=== PATIENT | male | born 1990 | race African-American/Black ===

== ENCOUNTER 2016-07-11 12:45 | Emergency (ER) | payer MEDICAID ==
[~2016-07-11] VITALS: Ht 185.4 cm; Wt 172.4 kg
[~2016-07-11 12:45] MED LIST: ALBUTEROL SULF8.5 GM INH; AZITHROMYCIN250 MG ORAL; BACITRACIN1 APPLIC TOPIC; BACTRIM DS TAB1 EAC1 ORAL; CYCLOBENZAPRINE10 MG ORAL; FIORICET1 EA ORAL; IBUPROFEN600 MG ORAL; IBUPROFEN800 M1 PO; IBUPROFEN800 MG ORAL; KEFLEX500 MG ORAL; LEVAQUIN750 MG ORAL; MEDROL DOSEPAK4 MG ORAL; NKM; NORCO 5-325 TA1 EACH ORAL; PERCOCET 5-3251 EACH ORAL; PREDNISONE20 MG ORAL; PROMETHAZINE-C118 M1 ORAL; PROMETHAZINE-D118 ML ORAL; TAMIFLU75 MG ORAL; TRAMADOL HCL50 MG ORAL
[2016-07-11] MEDS ORDERED: ALBUTEROL SULF8.5 GM INH (13:07)
--- NOTE | 2016-07-11 13:14 | Emergency Room Report ---
History of Present Illness General Chief Complaint: General Complaint Source: Patient Present Illness HPI 26-year-old male presents to emergency Department complaining of right knee pain x2 days 01/17 in severity exacerbated upon walking long distances. Patient denies history of fall, trauma or previous injury. Patient states he notices the pain when he is at work after he has been walking for some time or after flexing the knee repeatedly. Patient denies clicking or instability. Patient denies erythema, swelling or increased pressure palpation. Patient also reports 2 lesions on the anterior left mascorro with surrounding erythema one with overlying pustule the second recently the pustule burst. Denies injury he states he may have had insect bite denies itching. Reports tenderness to the skin about the lesions. Lastly patient also reports intermittent cough with mild nasal congestion denies sore throat, body aches, nausea, vomiting, fevers or chills. She denies any compromise denies history of asthma/COPD. Denies numbness tingling or loss of sensation or gross motor movements of the extremities, incontinence of bowel or bladder. Denies CP, Palpitations, LOC, AMS , dizziness, Changes in Vision, Sensation, paresthesias, or a sudden severe headache. Allergies: Coded Allergies: No Known Allergies (Unverified , 08/25/15) Patient History Past Medical History: see triage record Past Surgical History: none Pertinent Family History: none Immunizations: UTD Reviewed Nursing Documentation: PMH: Agreed, PSxH: Agreed Nursing Documentation-PM Past Medical History: No History, Except For Hx Hypertension: Yes Hx Asthma: Yes Review of Systems All Other Systems: negative except mentioned in HPI Physical Exam Vital Signs Date Time Temp Pulse Resp B/P Pulse Ox O2 Delivery O2 Flow Rate FiO2 07/11/16 12:59 98.6 73 18 148/107 97 Room Air Sp02 EP Interpretation: reviewed, normal General Appearance: no apparent distress, alert, GCS 15, non-toxic Head: normocephalic, atraumatic Eyes: bilateral eye PERRL, bilateral eye normal inspection ENT: hearing grossly normal, normal pharynx, no angioedema, normal voice, TMs + canals normal, uvula midline, moist mucus membranes Neck: full range of motion, supple/symm/no masses Respiratory: chest non-tender, lungs clear, normal breath sounds, no rhonchi, no respiratory distress, no retraction, no accessory muscle use, no wheezing, speaking full sentences Cardiovascular #1: regular rate, rhythm, no edema Cardiovascular #2: 2+ radial (R), 2+ radial (L), 2+ dorsalis pedis (R), 2+ dorsalis pedis (L) Gastrointestinal: normal bowel sounds, non tender, soft, no guarding, no rebound Rectal: deferred Genitourinary: normal inspection, no CVA tenderness Musculoskeletal: back normal, gait/station normal, normal range of motion, no calf tenderness, other - no TTP upon palpation to the right knee, no increased laxity upon varus or valgus stressing, negative anterior and posterior drawer signs Pt. did have positive pain with "grind test" , tender Neurologic: alert, oriented x3, responsive, motor strength/tone normal, sensory intact, speech normal Psychiatric: judgement/insight normal, memory normal, mood/affect normal, no suicidal/homicidal ideation Skin: normal color, no rash, warm/dry, well hydrated, other - two open lesions on the anterior left mascorro both 0.5cm in diameter, one with pustule noted, both have surrounding erythema and mild increased temperature to palpation, no evidence of excoriation or infestation. Lymphatic: no adenopathy Procedures Splinting Splinting : Consent: Verbal Location: right knee Pre-Made Type: RIK wrap Pre-Proc Neuro Vasc Exam: normal Post-Proc Neuro Vasc Exam: normal Patient Tolerated: Well Complications: None Medical Decision Making PA Attestation Dr. Banks is my supervising Physician whom patient management has been discussed with. Diagnostic Impression: Primary Impression: Right knee sprain Qualified Codes: S83.91XA - Sprain of unspecified site of right knee, initial encounter Additional Impressions: Cellulitis Qualified Codes: L03.90 - Cellulitis, unspecified URI (upper respiratory infection) Qualified Codes: J06.9 - Acute upper respiratory infection, unspecified; B97.89 - Other viral agents as the cause of diseases classified elsewhere ER Course Pt. presents to the ED c/o: Right knee pain after walking long distance, lesions on the anterior portion, and denies feversx 2 days Ddx considered but are not limited to Fracture, dislocation, contusion, Sprain/ Strain/Spasm, Cellulitis, URI, insect bite, dermatitis. Vital signs: are WNL, pt. is afebrile H&PE are most consistent with cellulitis of the left mascorro, and right Knee sprain, URI- no meningeal signs, oropharynx is not involved, no evidence of bacterial infection of the upper respiratory system at this time. ORDERS: - X-ray Right knee - negative for fx, Dislocation, or significant soft tissue injury, evidence of mild degenerative changes- per preliminary read in ED by Dr. Watt ED INTERVENTIONS: - Rik wrap applied by configuration technician. Pt. remains neurovascularly intact. -Bacitracin and Band-Aid is applied to open lesion on the left mascorro. - Discussed the patient that if his symptoms continue despite conservative management that his knee may require MRI which is performed as an outpatient ordered by his PCP. DISCHARGE: At this time pt. is stable for d/c to home. Will provide printed patient care instructions, and any necessary prescriptions. Care plan and follow up instructions have been discussed with the patient prior to discharge. Last Vital Signs Date Time Temp Pulse Resp B/P Pulse Ox O2 Delivery O2 Flow Rate FiO2 07/11/16 12:59 98.6 73 18 148/107 97 Room Air Disposition: HOME, SELF-CARE Condition: Stable Scripts Acetaminophen* (TYLENOL EXTRA STRENGTH*) 500 Mg Tablet 500 MG ORAL Q8H, #30 TAB 0 Refills Prov: Tamara Brantley 07/11/16 D-Methorphan Hb/Prometh Hcl* (PROMETHAZINE-DM SYRUP*) 118 Ml Syrup 5 ML ORAL Q6H Y for For Cough, #118 ML 0 Refills Prov: Tamara Brantley 07/11/16 Ibuprofen* (MOTRIN*) 600 Mg Tablet 600 MG ORAL THREE TIMES A DAY, #30 TAB 0 Refills Prov: Tamara Brantley.ARehan 07/11/16 Cephalexin* (KEFLEX*) 500 Mg Capsule 500 MG ORAL EVERY 12 HOURS for 7 Days, #14 CAP 0 Refills Prov: Tamara Brantley 07/11/16 Patient Instructions: Cellulitis, [id number], Knee Sprain, Upper Respiratory Infection, Adult, [id number] Additional Instructions: Take medications as directed. Follow up with PCP in 3-5 days Return sooner to ED if new symptoms occur, or current symptoms become worse. Tamara Brantley Jul 11, 2016 13:14
[2016-07-11] MEDS ORDERED: Bacitracin Oint UD TOPIC ONE (13:30)
[2016-07-11] MEDS ORDERED: CEPHALEXIN500 MG ORAL (14:38)
[2016-07-11] MEDS ORDERED: IBUPROFEN600 MG ORAL (14:38)
[2016-07-11] MEDS ORDERED: PROMETHAZINE-D118 ML ORAL (14:38)
[2016-07-11] MEDS ORDERED: TYLENOL EXTRA500 MG ORAL (15:02)
[2016-07-11 15:05] VITALS: BP 148/107
--- NOTE | 2016-07-18 10:29 | Diagnostic Imaging Report ---
Indication: PAIN Technique: 3 views of the right knee Comparison: 01/22/2016 Findings:Osseous abnormality is seen adjacent to the distal femoral epicondyle posterolaterally this appears to be a focus of heterotopic ossification. No definite acute fractures. No dislocations. No suprapatellar effusion. The joint spaces are preserved Impression:No acute process Ossific density adjacent to to the posteromedial femoral epicondyle, also previously described. May represent an osteochondroma or, more likely, a focus of heterotopic ossification
== END 2016-07-11 15:12 | disposition home or self-care (01) ==
LOC: EMR 13:10
DX: S83.91XA Sprain of unspecified site of right knee, initial encounter (principal); X50.3XXA Overexertion from repetitive movements, initial encounter; Y92.89 Other specified places as the place of occurrence of the external cause; Y99.9 Unspecified external cause status; L03.115 Cellulitis of right lower limb; J06.9 Acute upper respiratory infection, unspecified; I10 Essential (primary) hypertension; J45.909 Unspecified asthma, uncomplicated
CPT/HCPCS: 99284

== ENCOUNTER → 2016-08-19 | Emergency (ER) | payer MEDICAID ==
[~2016-08-19] MED LIST changes: +CEPHALEXIN500 MG ORAL; +CLOTRIMAZOLE15 GM TOPIC; +FLONASE ALLERG9.9 ML NS; +TYLENOL EXTRA500 MG ORAL; +ZITHROMAX250 MG ORAL
--- NOTE | 2016-08-19 17:16 | Emergency Room Report ---
History of Present Illness General Chief Complaint: To Be Triaged Present Illness HPI The patient was called multiple times and was not in the waiting area. The patient has left without being seen Allergies: Coded Allergies: No Known Allergies (Unverified , 08/25/15) Nursing Documentation-PMH Hx Hypertension: Yes Hx Asthma: Yes Medical Decision Making PA Attestation Dr. Garibay is my supervising physician. Patient management was discussed with my supervising physician ER Course The patient was called multiple times and was not in the waiting area. The patient has left without being seen Disposition: LEFT W/OUT BEING SEEN Condition: Unknown FREDDY TAYLOR Aug 19, 2016 17:16
== END | disposition left against medical advice (07) ==
LOC: EMR 16:03
DX: Z53.21 Procedure and treatment not carried out due to patient leaving prior to being seen by health care provider (principal)

== ENCOUNTER 2016-09-19 17:27 | Emergency (ER) | payer MEDICAID ==
[~2016-09-19] VITALS: Ht 182.9 cm; Wt 174.6 kg
[~2016-09-19 17:27] MED LIST changes: -CLOTRIMAZOLE15 GM TOPIC; -FLONASE ALLERG9.9 ML NS; -ZITHROMAX250 MG ORAL
[2016-09-19 18:00] VITALS: BP 145/79
[2016-09-19] MEDS ORDERED: PROMETHAZINE-D118 ML ORAL (18:10)
[2016-09-19] MEDS ORDERED: ZITHROMAX250 MG ORAL (18:10)
[2016-09-19] MEDS ORDERED: FLONASE ALLERG9.9 ML NS (18:10)
[2016-09-19] MEDS ORDERED: CLOTRIMAZOLE15 GM TOPIC (18:10)
[2016-09-19 18:15] VITALS: BP 145/79
--- NOTE | 2016-09-19 18:45 | Emergency Room Report ---
History of Present Illness General Chief Complaint: Upper Respiratory Illness Source: Patient Present Illness [facility] The patient is a 26 all male presenting with one week of productive cough, subjective fevers, and sore throat. The patient denies any sick contacts or recent travel. The patient describes pain as an 8/10 dull ache to the back of the throat and is worse with swallowing. Pain is nonradiating. The patient denies any other symptoms including headache, nausea, vomiting, chills, night sweats, hemoptysis, shortness of breath, wheezing, chest pain. The patient is also complaining of a rash which he noticed between his toes. This began one month prior after visiting a nail salon. The patient denies any pain to these areas. Patient has not tried any treatment for this. Allergies: Coded Allergies: No Known Allergies (Unverified , 08/25/15) Patient History Past Medical History: see triage record Pertinent Family History: none Reviewed Nursing Documentation: PMH: Agreed, PSxH: Agreed Nursing Documentation-PMH Past Medical History: No History, Except For Hx Hypertension: Yes Hx Asthma: Yes Review of Systems All Other Systems: negative except mentioned in HPI Physical Exam Vital Signs Date Time Temp Pulse Resp B/P Pulse Ox O2 Delivery O2 Flow Rate FiO2 09/19/16 17:49 97.9 77 16 145/79 100 Room Air Sp02 EP Interpretation: reviewed, normal General Appearance: no apparent distress, alert, GCS 15, non-toxic Head: normocephalic, atraumatic Eyes: bilateral eye PERRL, bilateral eye normal inspection ENT: normal voice, uvula midline, nasal congestion, tonsillar swelling, pharyngeal erythema Neck: full range of motion, supple/symm/no masses Respiratory: chest non-tender, lungs clear, normal breath sounds, speaking full sentences Cardiovascular #1: regular rate, rhythm, no edema Musculoskeletal: back normal, gait/station normal, normal range of motion, non- tender Neurologic: alert, oriented x3, responsive, motor strength/tone normal, sensory intact, speech normal Psychiatric: judgement/insight normal, memory normal, mood/affect normal, no suicidal/homicidal ideation Skin: normal color, warm/dry, well hydrated, rash - white, scaling rash between all toes. Lymphatic: adenopathy - cervical Medical Decision Making PA Attestation Dr. Carlos is my supervising physician. Patient management was discussed with my supervising physician Diagnostic Impression: Primary Impression: Tinea pedis Additional Impression: Pharyngitis, acute ER Course The patient is a 26 all male presenting with sore throat, cough, and rash between toes Differential diagnosis include but not limited to pharyngitis, sinusitis, AOM, bronchitis, PNA Ddx considered include but not limited to tinea pedis, contact dermatitis, eczema, cellulitis Physical exam: Vitals within normal limits. Afebrile. No apparent distress HEENT exam: There is bilateral tonsillar edema, erythema, and exudate. Uvula midline. Moist mucous membranes. + nasal congestion. There is bilateral cervical lymphadenopathy. Lungs are clear to auscultation bilaterally Skin is warm and dry. There is white, scaling rash between the toes. Slightly macerated The patient will be discharged home with a prescription for azithromycin, flonase, cough medication, Lotrimin cream, and is given ER precautions. Patient will followup with primary care Last Vital Signs Date Time Temp Pulse Resp B/P Pulse Ox O2 Delivery O2 Flow Rate FiO2 09/19/16 17:49 97.9 77 16 145/79 100 Room Air Status: improved Disposition: HOME, SELF-CARE Condition: Improved Scripts Clotrimazole* (LOTRIMIN*) 15 Gm Cream..g. 1 APPLIC TOPIC TWICE A DAY, #15 GM Prov: TERZIAN,FREDDY P.A. 09/19/16 Fluticasone Propionate (Flonase Allergy Relief) 9.9 Ml [place].susp 1 SPRAYS NS DAILY, #10 ML Prov: TERZIAN,FREDDY P.A. 09/19/16 D-Methorphan Hb/Prometh Hcl* (PROMETHAZINE-DM SYRUP*) 118 Ml Syrup 5 ML ORAL Q6H Y for For Cough, #118 ML 0 Refills Prov: TERZIAN,FREDDY P.A. 09/19/16 Azithromycin* (ZITHROMAX*) 250 Mg Tablet 250 MG ORAL DAILY, #6 TAB 0 Refills Take two tables once daily for 1 day, then one tablet once daily for 4 days. Prov: TERZIAN,FREDDY P.A. 09/19/16 Referrals: Tejal POSADA,REFERRING (PCP) Patient Instructions: Upper Respiratory Infection, Adult, Athlete's Foot Additional Instructions: I discussed my findings with the patient. All questions and concerns have been answered. Treatment and medication compliance have been addressed. I advised the patient that they need to follow up with PMD in 3-5 days. Return to ED if pain remains or worsens, cough worsens or remains, you notice blood in your sputum, you notice wheezing, you experience a fever, or if needed for any reason. Patient verbalized understanding of discharge instructions. FREDDY TAYLOR Sep 19, 2016 18:45
== END 2016-09-19 18:15 | disposition home or self-care (01) ==
LOC: EMR 17:55
DX: B35.3 Tinea pedis (principal); J02.9 Acute pharyngitis, unspecified; I10 Essential (primary) hypertension; J45.909 Unspecified asthma, uncomplicated
CPT/HCPCS: 99284

== ENCOUNTER 2016-11-01 14:03 | Emergency (ER) | payer MEDICAID ==
[~2016-11-01] VITALS: Ht 185.4 cm; Wt 183.7 kg
[~2016-11-01 14:03] MED LIST changes: +CLOTRIMAZOLE15 GM TOPIC; +FLONASE ALLERG9.9 ML NS; +ZITHROMAX250 MG ORAL
[2016-11-01 14:15] VITALS: BP 137/80
[2016-11-01] MEDS ORDERED: NKM (14:19)
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
[2016-11-01] MEDS ORDERED: IBUPROFEN600 MG ORAL (15:06)
[2016-11-01] MEDS ORDERED: CYCLOBENZAPRINE10 MG ORAL (15:06)
[2016-11-01] MEDS ORDERED: Ketorolac 60mg Inj IM ONE (15:15)
[2016-11-01 17:16] VITALS: BP 141/89
== END 2016-11-01 15:20 | disposition home or self-care (01) ==
LOC: EMR 14:32
DX: S16.1XXA Strain of muscle, fascia and tendon at neck level, initial encounter (principal); V43.62XA Car passenger injured in collision with other type car in traffic accident, initial encounter; Y92.410 Unspecified street and highway as the place of occurrence of the external cause; I10 Essential (primary) hypertension; J45.909 Unspecified asthma, uncomplicated
CPT/HCPCS: 96372; 99284

== ENCOUNTER 2016-12-11 03:55 | Emergency (ER) | payer MEDICAID ==
[~2016-12-11] VITALS: Ht 185.4 cm; Wt 177.8 kg
[2016-12-11] MEDS ORDERED: IBUPROFEN600 MG ORAL (04:30)
[2016-12-11] MEDS ORDERED: CLARITIN10 MG ORAL (04:30)
[2016-12-11 05:37] VITALS: BP 135/90
[2016-12-11] MEDS ORDERED: ALBUTEROL SULF8.5 GM INH (05:55)
[2016-12-11] MEDS ORDERED: ZOFRAN4 MG ORAL (05:57)
--- NOTE | 2016-12-14 07:56 | Emergency Room Report ---
History of Present Illness General Chief Complaint: Pain Source: Patient Present Illness HPI Patient is a 26-year-old male who presented after increased cough and a right- sided knee pain. Patient stated this had gradual onset. Patient had a nonproductive cough he stated that he had prior injury to his right knee which become more painful. Patient stated he had been having some nausea as well as some vomiting. He denies abdominal pain. He denied diarrhea. Allergies: Coded Allergies: No Known Allergies (Unverified , 08/25/15) Patient History Past Medical History: see triage record Reviewed Nursing Documentation: PMH: Agreed, PSxH: Agreed Nursing Documentation-PM Past Medical History: No History, Except For Hx Hypertension: Yes Hx Asthma: Yes Review of Systems All Other Systems: negative except mentioned in HPI Physical Exam Vital Signs Date Time Temp Pulse Resp B/P Pulse Ox O2 Delivery O2 Flow Rate FiO2 12/11/16 04:10 97.9 60 16 146/96 98 Room Air General Appearance: well appearing, no apparent distress, alert, GCS 15, non- toxic, obese Head: normocephalic, atraumatic ENT: hearing grossly normal, normal voice Neck: full range of motion, supple Respiratory: lungs clear, normal breath sounds, no respiratory distress, speaking full sentences Cardiovascular #1: normal peripheral pulses, regular rate, rhythm, edema - bilateral lower extremity Gastrointestinal: normal bowel sounds, non tender, soft Musculoskeletal: no calf tenderness Neurologic: normal inspection, alert, oriented x3, responsive, normal gait Psychiatric: mood/affect normal Skin: no rash Medical Decision Making Diagnostic Impression: Primary Impression: Knee pain Additional Impression: URI (upper respiratory infection) ER Course Patient presented for cough.Differential diagnosis included but was not limited to bronchitis, pneumonia, pulmonary embolism, pericarditis, asthma, foreign body. Chest x-ray was ordered due to patient's recent cough. A chest x-ray one view interpreted by me showed normal cardiac size without evident infiltrate there is no evident pneumothorax. The patient noted to have a right knee pain which appears to be chronic in nature. Patient was advised to follow up with primary care physician for further evaluation and treatment. He was given ibuprofen prescription. he was given prescription for nausea medication. The patient is likely of a viral respiratory infection He shows no signs of respiratory distress.The patient is advised to follow up with primary care doctor in 1-2 days. Patient is advised to return if any worsening condition or if any changes in status that are concerning. Last Vital Signs Date Time Temp Pulse Resp B/P Pulse Ox O2 Delivery O2 Flow Rate FiO2 12/11/16 05:37 97.9 80 16 135/90 98 Room Air Status: improved Disposition: HOME, SELF-CARE Condition: Stable Scripts Ondansetron (Zofran) 4 Mg Tablet 4 MG ORAL Q6H Y for Nausea & Vomiting, #30 TAB 0 Refills Prov: Michael Watt 12/11/16 Albuterol Sulfate* (ALBUTEROL SULFATE MDI*) 8.5 Gm Hfa.aer.ad 2 PUFF INH Q6H, #1 INH 0 Refills Prov: Michael Watt 12/11/16 Ibuprofen* (MOTRIN*) 600 Mg Tablet 600 MG ORAL Q8H Y for For Pain, #30 TAB 0 Refills Prov: Michael Watt 12/11/16 Loratadine (CLARITIN) 10 Mg Tablet 10 MG ORAL DAILY, #30 TAB Prov: Michael Watt 12/11/16 Referrals: [facility],REFERRING (PCP) Patient Instructions: Upper Respiratory Infection, Adult, [id number] Michael Watt Dec 14, 2016 07:56
== END 2016-12-11 05:37 | disposition home or self-care (01) ==
LOC: EMR 04:30
DX: M25.561 Pain in right knee (principal); J06.9 Acute upper respiratory infection, unspecified; R05 Cough; R11.2 Nausea with vomiting, unspecified; I10 Essential (primary) hypertension
CPT/HCPCS: 71010; 82962; 99283

== ENCOUNTER 2017-01-13 23:47 | Emergency (ER) | payer MEDICAID ==
[~2017-01-13] VITALS: Ht 185.4 cm; Wt 176.9 kg
[~2017-01-13 23:47] MED LIST changes: +CLARITIN10 MG ORAL; +ZOFRAN4 MG ORAL
[2017-01-14 00:02] VITALS: BP 155/96
[2017-01-14] MEDS ORDERED: IBUPROFEN600 MG ORAL (00:58)
--- NOTE | 2017-01-14 00:59 | Emergency Room Report ---
History of Present Illness General Chief Complaint: Pain Source: Patient Present Illness HPI Is a 26-year-old male with a BMI of 51.5. He has chronic and right knee pain for many years. He presents with chief complaint of increasing right knee pain. No trauma. 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 Pain is 8/10. Worse with movement. No fever chills but no nausea no vomiting. Phky-aft-diqoufn medicine not helping. Allergies: Coded Allergies: No Known Allergies (Unverified , 08/25/15) Patient History Past Medical History: see triage record, old chart reviewed Past Surgical History: none Pertinent Family History: none Social History: Denies: smoking Immunizations: other Reviewed Nursing Documentation: PMH: Agreed, PSxH: Agreed Nursing Documentation-PM Past Medical History: No History, Except For Hx Hypertension: Yes Hx Asthma: Yes Review of Systems Eye: Denies: blurred vision, eye pain ENT: Denies: ear pain, nose congestion, throat swelling Respiratory: Denies: cough, shortness of breath Cardiovascular: Denies: chest pain, palpitations Gastrointestinal: Denies: abdominal pain, diarrhea, nausea, vomiting Musculoskeletal: Reports: joint pain, Denies: back pain Skin: Denies: rash Neurological: Denies: headache, numbness Endocrine: Denies: increased thirst, increased urine Hematologic/Lymphatic: Denies: easy bruising All Other Systems: negative except mentioned in HPI Physical Exam Vital Signs Date Time Temp Pulse Resp B/P Pulse Ox O2 Delivery O2 Flow Rate FiO2 01/13/17 23:57 98.4 78 16 155/96 99 Room Air vitals with htn Sp02 EP Interpretation: reviewed, normal General Appearance: well appearing, no apparent distress, alert Head: normocephalic, atraumatic Eyes: bilateral eye EOMI, bilateral eye PERRL ENT: hearing grossly normal, normal pharynx Neck: full range of motion, supple, no meningismus Respiratory: chest non-tender, lungs clear, normal breath sounds Cardiovascular #1: regular rate, rhythm, no murmur Gastrointestinal: normal bowel sounds, non tender, no mass, no organomegaly, no bruit, non-distended Musculoskeletal: back normal, gait/station normal, normal range of motion, other - ttp over laterally of right knee Psychiatric: mood/affect normal Skin: warm/dry Medical Decision Making Diagnostic Impression: Primary Impression: Knee pain Qualified Codes: M25.561 - Pain in right knee Additional Impression: Morbid obesity with BMI of 50.0-59.9, adult ER Course Patient with exacerbation of chronic right knee pain. Most likely osteoarthritis. He would benefit from weight loss. No evidence of septic joint , fracture dislocation. We'll discharge home. Last Vital Signs Date Time Temp Pulse Resp B/P Pulse Ox O2 Delivery O2 Flow Rate FiO2 01/14/17 00:02 98.4 16 155/96 99 Room Air 01/13/17 23:57 78 Status: improved Disposition: HOME, SELF-CARE Condition: Stable Scripts Hydrocodone/Acetaminophen 5-325* (HYDROCODONE/ACETAMINOPHEN 5-325*) 1 Each Tablet 1 TAB ORAL Q6H Y for For Pain, #20 TAB 0 Refills Prov: FELIPA BURNETT M.D. 01/14/17 Ibuprofen* (MOTRIN*) 600 Mg Tablet 600 MG ORAL THREE TIMES A DAY, #30 TAB 0 Refills Prov: FELIPA BURNETT M.D. 01/14/17 Referrals: NON PHYSICIAN (PCP) Additional Instructions: Followup with your DrRehan in 7 days. You may benefit from an MRI. Return if worse. FELIPA BURNETT M.D. Jan 14, 2017 00:59
[2017-01-14] MEDS ORDERED: HYDROCODON-ACE1 EA15 ORAL (01:09)
[2017-01-14 01:15] VITALS: BP 155/96
[2017-01-14] MEDS ORDERED: Mylanta II UD 30ml ORAL ONE (01:15)
== END 2017-01-14 01:15 | disposition home or self-care (01) ==
LOC: EMR 01-14 00:53
DX: M25.561 Pain in right knee (principal); E66.01 Morbid (severe) obesity due to excess calories; Z68.43 Body mass index [BMI] 50.0-59.9, adult; G89.29 Other chronic pain; I10 Essential (primary) hypertension
CPT/HCPCS: 99284

== ENCOUNTER 2017-02-16 16:15 | Emergency (ER) | payer MEDICAID ==
[~2017-02-16] VITALS: Ht 185.4 cm; Wt 176.9 kg
[~2017-02-16 16:15] MED LIST changes: +HYDROCODON-ACE1 EA15 ORAL
--- NOTE | 2017-02-16 16:42 | Emergency Room Report ---
History of Present Illness General Chief Complaint: General Complaint Source: Patient Present Illness Allergies: Coded Allergies: No Known Allergies (Unverified , 08/25/15) Patient History Past Medical History: none Past Surgical History: none Nursing Documentation-PM Past Medical History: No History, Except For Hx Hypertension: Yes Hx Asthma: Yes Review of Systems Gastrointestinal: Reports: abdominal pain Neurological: Reports: headache All Other Systems: negative except mentioned in HPI Physical Exam Vital Signs Date Time Temp Pulse Resp B/P Pulse Ox O2 Delivery O2 Flow Rate FiO2 02/16/17 16:19 97.9 79 16 148/78 95 Room Air Sp02 EP Interpretation: normal General Appearance: normal inspection, well appearing - conversing appropriately at bedside, no apparent distress, alert, GCS 15, non-toxic Head: normocephalic, atraumatic Eyes: bilateral eye EOMI, bilateral eye normal inspection ENT: normal ENT inspection, normal pharynx, normal voice, moist mucus membranes Neck: normal inspection, full range of motion, supple, no bony tend Respiratory: normal inspection, lungs clear, normal breath sounds, no respiratory distress, no retraction, no wheezing, speaking full sentences, chest symmetrical Cardiovascular #1: normal inspection, regular rate, rhythm, no edema, normal capillary refill Gastrointestinal: normal inspection, non tender, soft, non-distended, no guarding, other - no tenderness to deep palpation all quadrants, overweight Genitourinary: no CVA tenderness Musculoskeletal: normal inspection, back normal, normal range of motion, non- tender Neurologic: normal inspection, alert, oriented x3, responsive, solution developer III-XII nml as tested, motor strength/tone normal, sensory intact, normal gait, speech normal Medical Decision Making Diagnostic Impression: Primary Impression: Headache Additional Impression: Abdominal pain, chronic, epigastric ER Course 27 yo M no sig pmhx p/w 2 days JOHNSON, ~3 wks chronic epigastric pain. DDX: primary JOHNSON/ migraine / dehydration at this time no imaging required - not c/w intracranial process / bleed as patient appears well, no neurological sx or findings chronic abd pain: gerd/gastritis ER course: patient offered tylenol for pain as motrin bothers his stomach, but he refused. Also offered to place IV for reglan/benadryl but also refused as he is driving. States pain is "not that bad" right now. remained stable and ambulatory in ED. Disposition: Patient DC'ed back to home Instructed to follow up with PMD. See a neurologist if JOHNSON worsens. Instructed to come back to ED if severe johnson, n/v, blurry vision. Dietary modification instructed for abd pain, told if pain returns or worsens to come back to ED. Pt verbalized understanding and agrees with plan Last Vital Signs Date Time Temp Pulse Resp B/P Pulse Ox O2 Delivery O2 Flow Rate FiO2 02/16/17 16:19 97.9 79 16 148/78 95 Room Air Disposition: HOME, SELF-CARE Condition: Stable Scripts Famotidine (PEPCID) 40 Mg Tablet 40 MG PO DAILY, #7 TAB 0 Refills Prov: Tish Rg M.D. 02/16/17 Tish Rg M.D. Feb 16, 2017 16:42
[2017-02-16] MEDS ORDERED: PEPCID40 MG PO (16:43)
[2017-02-16 17:05] VITALS: BP 148/78
[2017-02-16 17:08] VITALS: BP 148/78
== END 2017-02-16 17:10 | disposition home or self-care (01) ==
LOC: EMR 16:54
DX: R51 Headache (principal); R10.13 Epigastric pain; I10 Essential (primary) hypertension; J45.909 Unspecified asthma, uncomplicated
CPT/HCPCS: 99283

== ENCOUNTER 2017-03-13 23:58 | Emergency (ER) | payer MEDICAID ==
[~2017-03-13] VITALS: Ht 185.4 cm; Wt 174.6 kg
[~2017-03-13 23:58] MED LIST changes: +PEPCID40 MG PO
[2017-03-14] MEDS ORDERED: IBUPROFEN600 MG ORAL (00:31)
--- NOTE | 2017-03-14 00:32 | Emergency Room Report ---
History of Present Illness General Chief Complaint: Pain Source: Patient Present Illness HPI Is a 27-year-old male who has a history of chronic knee and shoulder pain. He presents with chief complaint of right knee pain. Exacerbated from his work. No trauma. Throbbing nature. Denies any other complaint. Pain is 8/10. Out of his pain medication. Allergies: Coded Allergies: No Known Allergies (Unverified , 08/25/15) Patient History Past Medical History: see triage record, old chart reviewed Past Surgical History: other Pertinent Family History: none Social History: Denies: smoking Immunizations: other Reviewed Nursing Documentation: PMH: Agreed, PSxH: Agreed Nursing Documentation-PMH Hx Hypertension: Yes Hx Asthma: Yes Review of Systems Eye: Denies: eye pain, blurred vision ENT: Denies: ear pain, nose congestion, throat swelling Respiratory: Denies: cough, shortness of breath Cardiovascular: Denies: chest pain, palpitations Gastrointestinal: Denies: abdominal pain, diarrhea, nausea, vomiting Musculoskeletal: Reports: joint pain, Denies: back pain Skin: Denies: rash Neurological: Denies: headache, numbness Endocrine: Denies: increased thirst, increased urine Hematologic/Lymphatic: Denies: easy bruising All Other Systems: negative except mentioned in HPI Physical Exam Vital Signs Date Time Temp Pulse Resp B/P (MAP) Pulse Ox O2 Delivery O2 Flow Rate FiO2 03/14/17 00:04 98.1 63 18 139/88 96 Room Air vitals normal Sp02 EP Interpretation: reviewed, normal General Appearance: well appearing, no apparent distress, alert, obese Head: normocephalic, atraumatic Eyes: bilateral eye PERRL, bilateral eye EOMI ENT: hearing grossly normal, normal pharynx Neck: full range of motion, supple, no meningismus Respiratory: chest non-tender, lungs clear, normal breath sounds Cardiovascular #1: regular rate, rhythm, no murmur Gastrointestinal: normal bowel sounds, non tender, no mass, no organomegaly, no bruit, non-distended Musculoskeletal: back normal, gait/station normal, normal range of motion, other - Mild tenderness to te. Full [place] of motion. He walked without difficulty. Psychiatric: mood/affect normal Skin: warm/dry Medical Decision Making Diagnostic Impression: Primary Impression: Knee pain Qualified Codes: M25.561 - Pain in right knee ER Course Patient presents with acute on chronic right knee pain. 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 He's been here multiple time for the same thing. I see no need for further workup or x- rays. I see no evidence of issue with his knee. Last Vital Signs Date Time Temp Pulse Resp B/P (MAP) Pulse Ox O2 Delivery O2 Flow Rate FiO2 03/14/17 00:04 98.1 63 18 139/88 96 Room Air Status: improved Disposition: HOME, SELF-CARE Condition: Stable Scripts Ibuprofen* (MOTRIN*) 600 Mg Tablet 600 MG ORAL THREE TIMES A DAY, #30 TAB 0 Refills Prov: FELIPA BURNETT M.D. 03/14/17 Patient Instructions: Chronic Pain Additional Instructions: Followup with your Dr. in 7 days. There is no need for you to keep returning to the ER for the same pain in your knee. Return if symptom worsen. FELIPA BURNETT M.D. Mar 14, 2017 00:32
[2017-03-14 00:36] VITALS: BP 139/88
== END 2017-03-14 00:36 | disposition home or self-care (01) ==
LOC: EMR 03-14 00:25
DX: M25.561 Pain in right knee (principal); I10 Essential (primary) hypertension; M94.261 Chondromalacia, right knee; G89.29 Other chronic pain
CPT/HCPCS: 99283

== ENCOUNTER 2017-04-02 18:04 | Emergency (ER) | payer MEDICAID ==
[~2017-04-02] VITALS: Ht 185.4 cm; Wt 176.9 kg
[2017-04-02 18:09] VITALS: BP 160/66
[2017-04-02] MEDS ORDERED: NKM (18:14)
--- NOTE | 2017-04-02 18:31 | Emergency Room Report ---
History of Present Illness General Chief Complaint: Skin Rash/Abscess Source: Patient (Carole Carvajal) Present Illness HPI Patient is a 27-year-old male with no significant past medical history who presents today with complaints of an insect bite to the left forearm. He states he noticed it several days ago and "popped" the index high at and notes a scant amount of pus came out. She states that "bump" it has been itching him as well. He has not used any medications. 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 He denies fever, chills, chest pain, shortness of breath or associated symptoms. (Carole Carvajal) Allergies: Coded Allergies: No Known Allergies (Unverified , 08/25/15) Patient History Reviewed Nursing Documentation: PMH: Agreed, PSxH: Agreed (Carole Carvajal) Nursing Documentation-PMH Hx Hypertension: Yes Hx Asthma: Yes (Carole Carvajal) Review of Systems Skin: Reports: rash All Other Systems: negative except mentioned in HPI (Carole Carvajal.ARehan) Physical Exam Vital Signs Date Time Temp Pulse Resp B/P (MAP) Pulse Ox O2 Delivery O2 Flow Rate FiO2 04/02/17 18:09 98.4 72 17 160/66 96 Room Air Sp02 EP Interpretation: reviewed, normal General Appearance: no apparent distress, alert, GCS 15, non-toxic Head: normocephalic, atraumatic Eyes: bilateral eye normal inspection, bilateral eye PERRL ENT: hearing grossly normal, normal pharynx, no angioedema, normal voice Neck: full range of motion, supple/symm/no masses Respiratory: chest non-tender, lungs clear, normal breath sounds, speaking full sentences Cardiovascular #1: regular rate, rhythm, no edema Cardiovascular #2: 2+ carotid (R), 2+ carotid (L), 2+ radial (R), 2+ radial (L) , 2+ dorsalis pedis (R), 2+ dorsalis pedis (L) Gastrointestinal: normal bowel sounds, non tender, soft, non-distended, no guarding, no rebound Rectal: deferred Genitourinary: normal inspection, no CVA tenderness Musculoskeletal: back normal, gait/station normal, normal range of motion, non- tender, other - negative sheela's sign Neurologic: alert, oriented x3, responsive, motor strength/tone normal, sensory intact, speech normal Psychiatric: judgement/insight normal, memory normal, mood/affect normal, no suicidal/homicidal ideation Reflexes: 3+ bicep (R), 3+ bicep (L), 3+ tricep (R), 3+ tricep (L), 3+ knee (R) , 3+ knee (L) Skin: normal color, warm/dry, well hydrated, other - 1 cm area of induration to the medial aspect of the left forearm with no tenderness to palpation, no erythema Lymphatic: no adenopathy (Carole Carvajal) Medical Decision Making PA Attestation supervising physician is Dr. Carlos (Carole Carvajal) Diagnostic Impression: Primary Impression: Insect bite Qualified Codes: W57.XXXA - Bitten or stung by nonvenomous insect and other nonvenomous arthropods, initial encounter ER Course She presents today with a man insect bites to the left forearm. Patient has a small area of induration with no overlying erythema. There is no need for incision and drainage at this time. At no need for systemic antibiotics as there is no overlying cellulitis. Patient's instructions use warm compresses every 4 hours and to follow up with primary doctor in 2 days. Given return precautions. The patient also complaining of cramping to bilateral calves, low index of suspicion for DVT. Patient instructed to increase by mouth fluids, stretching and followup with primary care physician for reevaluation. Pt understands and is agreeable to plan. (Carole Carvajal P.A.) Last Vital Signs Date Time Temp Pulse Resp B/P (MAP) Pulse Ox O2 Delivery O2 Flow Rate FiO2 04/02/17 18:09 98.4 72 17 160/66 96 Room Air Status: improved (Carole Carvajal.A.) Last Vital Signs Date Time Temp Pulse Resp B/P (MAP) Pulse Ox O2 Delivery O2 Flow Rate FiO2 04/02/17 18:40 98.4 75 16 157/64 99 Room Air Status: unchanged (Chet Carlos M.D.) Disposition: HOME, SELF-CARE Condition: Stable Referrals: NON PHYSICIAN (PCP) Carole Carvajal Apr 02, 2017 18:31 Chet Carlos M.D. Apr 03, 2017 03:52
[2017-04-02 18:40] VITALS: BP 157/64
== END 2017-04-02 18:42 | disposition home or self-care (01) ==
LOC: EMR 18:21
DX: S50.862A Insect bite (nonvenomous) of left forearm, initial encounter (principal); W57.XXXA Bitten or stung by nonvenomous insect and other nonvenomous arthropods, initial encounter; Y92.89 Other specified places as the place of occurrence of the external cause; I10 Essential (primary) hypertension; J45.909 Unspecified asthma, uncomplicated
CPT/HCPCS: 99282

== ENCOUNTER 2017-05-13 16:20 | Emergency (ER) | payer MEDICAID ==
[~2017-05-13] VITALS: Ht 185.4 cm; Wt 176.9 kg
--- NOTE | 2017-05-13 16:58 | Emergency Room Report ---
History of Present Illness General Chief Complaint: Flu Like Symptoms Source: Patient Present Illness HPI 27-year-old male presents to the emergency department complaining of cough with increased mucus, nasal congestion, rhinorrhea, sore throat 6/10 in severity x4 days. Patient denies fevers he does report several episodes of cold sweats. 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 He is up-to-date with his yearly flu vaccination he received a last month.Denies CP, Palpitations, LOC, AMS, dizziness, Changes in Vision, Sensation, paresthesias, or a sudden severe headache. Allergies: Coded Allergies: No Known Allergies (Unverified , 08/25/15) Patient History Past Medical History: see triage record Past Surgical History: none Pertinent Family History: none Immunizations: UTD Reviewed Nursing Documentation: PMH: Agreed, PSxH: Agreed Nursing Documentation-PMH Hx Hypertension: Yes Hx Asthma: Yes Review of Systems All Other Systems: negative except mentioned in HPI Physical Exam Vital Signs Date Time Temp Pulse Resp B/P (MAP) Pulse Ox O2 Delivery O2 Flow Rate FiO2 05/13/17 16:31 98.2 69 17 126/79 95 Room Air Sp02 EP Interpretation: reviewed, normal General Appearance: no apparent distress, alert, GCS 15, non-toxic Head: normocephalic, atraumatic Eyes: bilateral eye normal inspection, bilateral eye PERRL ENT: hearing grossly normal, normal pharynx, no angioedema, normal voice, TMs + canals normal, uvula midline, moist mucus membranes, nasal congestion, pharyngeal erythema Neck: full range of motion, no meningismus, no bony tend, supple/symm/no masses Respiratory: lungs clear, normal breath sounds, speaking full sentences Cardiovascular #1: regular rate, rhythm, normal capillary refill Musculoskeletal: back normal, gait/station normal, normal range of motion, non- tender Neurologic: alert, oriented x3, responsive, motor strength/tone normal, sensory intact, speech normal Skin: normal color, no rash, warm/dry, well hydrated Lymphatic: no adenopathy Medical Decision Making PA Attestation Dr. Carlos is my supervising Physician whom patient management has been discussed with. Diagnostic Impression: Primary Impression: URI (upper respiratory infection) Qualified Codes: J06.9 - Acute upper respiratory infection, unspecified; B97.89 - Other viral agents as the cause of diseases classified elsewhere ER Course 27-year-old male presents to the emergency department complaining of cough with increased mucus, nasal congestion, rhinorrhea, sore throat 6/10 in severity x4 days. Patient denies fevers he does report several episodes of cold sweats. 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 He is up-to-date with his yearly flu vaccination he received a last month.Denies CP, Palpitations, LOC, AMS, dizziness, Changes in Vision, Sensation, paresthesias, or a sudden severe headache. Ddx considered but are not limited to URI, pneumonia, PE, strep pharyngitis, meningitis. Vital signs: Pt. is afebrile, the remaining VS are WNL H&PE are most consistent with URI- no meningeal signs, oropharynx is not involved, no evidence of bacterial infection at this time. ORDERS: none required at this time, the diagnosis is clinical ED INTERVENTIONS: None required at this time. --PT. EDUCATION: Discussed antibiotic resistance with inappropriate prescribing of antibiotics for viral illnesses. Discussed signs and symptoms to indicate viral illness versus bacterial illness. DISCHARGE: At this time pt. is stable for d/c to home. Will provide printed patient care instructions, and any necessary prescriptions. Care plan and follow up instructions have been discussed with the patient prior to discharge. Last Vital Signs Date Time Temp Pulse Resp B/P (MAP) Pulse Ox O2 Delivery O2 Flow Rate FiO2 05/13/17 16:31 98.2 69 17 126/79 95 Room Air Disposition: HOME, SELF-CARE Condition: Stable Scripts Acetaminophen* (TYLENOL EXTRA STRENGTH*) 500 Mg Tablet 500 MG ORAL Q6H Y for Mild Pain/Temp > 100.5, #20 TAB 0 Refills Prov: Tamara rBantley P.A. 05/13/17 Guaifenesin (Guaifenesin) 1,200 Mg Tab.er.12h 1200 MG PO Q12HR for 10 Days, #20 TAB Prov: Tamara Brantley P.A. 05/13/17 Codeine/Promethazine Hcl* (PROMETHAZINE-CODEINE SYRUP*) 118 Ml Syrup 5 ML ORAL Q6H Y for For Cough, #120 ML 0 Refills Prov: Tamara Brantley 05/13/17 Departure Forms: Return to Work Return to Work Date: May 17, 2017 Work Restrictions: None Return to Full Activity: May 17, 2017 Patient Instructions: Upper Respiratory Infection, Adult Additional Instructions: Take medications as directed. Follow up with a Primary Care Provider in 3-5 days, even if your symptoms have resolved. --Please review list of primary care clinics, if you do not already have a primary care provider Return sooner to ED if new symptoms occur, or current symptoms become worse. Do not drink alcohol, drive, or operate heavy machinery while taking Cough Syrup as this may cause drowsiness. - Please note that this Emergency Department Report was dictated using Ning by [employer] bath mixer technology software, occasionally this can lead to erroneous entry secondary to interpretation by the dictation equipment. Tamara Brantley May 13, 2017 16:58
[2017-05-13] MEDS ORDERED: GUAIFENESIN1200 MG PO (16:59)
[2017-05-13] MEDS ORDERED: PROMETHAZINE-C118 M1 ORAL (16:59)
[2017-05-13] MEDS ORDERED: TYLENOL EXTRA500 MG ORAL (16:59)
[2017-05-13 17:10] VITALS: BP 126/79
[2017-05-13 17:12] VITALS: BP 126/79
== END 2017-05-13 17:13 | disposition home or self-care (01) ==
LOC: EMR 16:57
DX: J06.9 Acute upper respiratory infection, unspecified (principal); I10 Essential (primary) hypertension; J45.909 Unspecified asthma, uncomplicated
CPT/HCPCS: 99284

== ENCOUNTER 2017-06-28 20:34 | Emergency (ER) | payer MEDICAID ==
[~2017-06-28] VITALS: Ht 185.4 cm; Wt 174.6 kg
[~2017-06-28 20:34] MED LIST changes: +GUAIFENESIN1200 MG PO
[2017-06-28 20:38] VITALS: BP 134/85
[2017-06-28] MEDS ORDERED: AZITHROMYCIN250 MG ORAL (21:10)
--- NOTE | 2017-06-28 21:11 | Emergency Room Report ---
History of Present Illness General Chief Complaint: Upper Respiratory Illness Source: Patient Present Illness HPI Is a 27-year-old male who presents with chief complaint of cough productive sputum. He been ongoing for 2 and half weeks. Initially clear but now darkish sputum. No fever chills but no nausea no vomiting. Qulk-eol-eetkxkc medication helping. Denies any chest pain. Denies any leg swelling. Allergies: Coded Allergies: No Known Allergies (Unverified , 08/25/15) Patient History Past Medical History: see triage record, old chart reviewed Past Surgical History: other Pertinent Family History: none Social History: Denies: smoking Immunizations: other Reviewed Nursing Documentation: PMH: Agreed, PSxH: Agreed Nursing Documentation-PMH Hx Hypertension: Yes Hx Asthma: Yes Review of Systems Eye: Denies: eye pain, blurred vision ENT: Denies: ear pain, nose congestion, throat swelling Respiratory: Reports: cough, sputum, Denies: shortness of breath Cardiovascular: Denies: chest pain, palpitations Gastrointestinal: Denies: abdominal pain, diarrhea, nausea, vomiting Musculoskeletal: Denies: back pain, joint pain Skin: Denies: rash Neurological: Denies: headache, numbness Endocrine: Denies: increased thirst, increased urine Hematologic/Lymphatic: Denies: easy bruising All Other Systems: negative except mentioned in HPI Physical Exam Vital Signs Date Time Temp Pulse Resp B/P (MAP) Pulse Ox O2 Delivery O2 Flow Rate FiO2 06/28/17 20:38 98.1 68 18 134/85 98 06/28/17 20:42 Room Air vitals normal Sp02 EP Interpretation: reviewed, normal General Appearance: well appearing, no apparent distress, alert, obese Head: normocephalic, atraumatic Eyes: bilateral eye PERRL, bilateral eye EOMI ENT: hearing grossly normal, normal pharynx Neck: full range of motion, supple, no meningismus Respiratory: chest non-tender, lungs clear, normal breath sounds Cardiovascular #1: regular rate, rhythm, no murmur Gastrointestinal: normal bowel sounds, non tender, no mass, no organomegaly, no bruit, non-distended Musculoskeletal: back normal, gait/station normal, normal range of motion Psychiatric: mood/affect normal Skin: warm/dry Medical Decision Making Diagnostic Impression: Primary Impression: URI (upper respiratory infection) Qualified Codes: J06.9 - Acute upper respiratory infection, unspecified ER Course Patient with an upper respiratory infection. Most likely viral but increasing sputum production and change in color with duration, may be atypical pneumonia, mycoplasma. I will treat with antibiotics since this has been 2 and half weeks. No evidence of ACS, PE, dissection to name a few. Last Vital Signs Date Time Temp Pulse Resp B/P (MAP) Pulse Ox O2 Delivery O2 Flow Rate FiO2 06/28/17 20:42 68 18 Room Air 06/28/17 20:38 98.1 134/85 98 Status: unchanged Disposition: HOME, SELF-CARE Condition: Stable Scripts Azithromycin* (ZITHROMAX*) 250 Mg Tablet 250 MG ORAL DAILY, #6 TAB 0 Refills Take two tablets by mouth today, then take one tablet by mouth daily for four days Prov: FELIPA BURNETT M.D. 06/28/17 Patient Instructions: Upper Respiratory Infection, Adult Additional Instructions: Followup with your Dr. in 7 days. Return if symptom worsen. FELIPA BURNETT M.D. Jun 28, 2017 21:11
[2017-06-28 21:26] VITALS: BP 134/85
== END 2017-06-28 21:40 | disposition home or self-care (01) ==
LOC: EMR 21:28
DX: J06.9 Acute upper respiratory infection, unspecified (principal); I10 Essential (primary) hypertension; J45.909 Unspecified asthma, uncomplicated
CPT/HCPCS: 99283

== ENCOUNTER 2017-10-31 02:48 | Emergency (ER) | payer MEDICAID ==
[~2017-10-31] VITALS: Ht 185.4 cm; Wt 176.9 kg
[2017-10-31] MEDS ORDERED: Methocarbamol 750mg tab ORAL ONE (03:30)
[2017-10-31] MEDS ORDERED: Ketorolac 30mg Inj IM ONE (03:30)
[2017-10-31 03:34] VITALS: BP 151/79
[2017-10-31] MEDS ORDERED: IBUPROFEN600 MG ORAL (04:09)
[2017-10-31] MEDS ORDERED: ROBAXIN-750750 MG PO (04:09)
[2017-10-31 04:20] VITALS: BP 151/91
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
== END 2017-10-31 04:22 | disposition home or self-care (01) ==
LOC: EMR 03:18
DX: S50.02XA Contusion of left elbow, initial encounter (principal); V49.9XXA Car occupant (driver) (passenger) injured in unspecified traffic accident, initial encounter; Y92.410 Unspecified street and highway as the place of occurrence of the external cause; V43.52XA Car driver injured in collision with other type car in traffic accident, initial encounter; R51 Headache
CPT/HCPCS: 73080; 96372; 99284; J1885

== ENCOUNTER 2018-04-07 20:32 | Emergency (ER) | payer MEDICAID ==
[~2018-04-07] VITALS: Ht 185.4 cm; Wt 158.8 kg
[~2018-04-07 20:32] MED LIST changes: +ROBAXIN-750750 MG PO
[2018-04-07] MEDS ORDERED: NKM (20:39)
[2018-04-07 20:44] VITALS: BP 153/79
[2018-04-07] MEDS ORDERED: Bacitracin Oint UD TOPIC ONE (21:00)
[2018-04-07] MEDS ORDERED: BACITRACIN ZIN1 EACH TOPIC (21:06)
[2018-04-07 21:17] VITALS: BP 153/79
--- NOTE | 2018-04-07 21:19 | Emergency Room Report ---
History of Present Illness General Chief Complaint: Skin Rash/Abscess Source: Patient Present Illness HPI Patient is a 20-year-old male presented after increased skin rash to his right upper extremity. This of been present for approximately 5 days. Patient had noticed increased swelling. He had attempted to drain the fluid collection the with small amount purulent material.He denies any fever. He denies any other locations of discomfort. Allergies: Coded Allergies: No Known Allergies (Unverified , 08/25/15) Patient History Reviewed Nursing Documentation: PMH: Agreed Nursing Documentation-PM Past Medical History: No History, Except For Hx Hypertension: No Hx Asthma: Yes Physical Exam Vital Signs Date Time Temp Pulse Resp B/P (MAP) Pulse Ox O2 Delivery O2 Flow Rate FiO2 04/07/18 20:34 98.8 68 16 153/79 98 Room Air 98.8 General Appearance: well appearing, no apparent distress, alert, GCS 15, obese Head: normocephalic, atraumatic ENT: hearing grossly normal, normal voice Neck: full range of motion, supple Respiratory: no respiratory distress, speaking full sentences Musculoskeletal: no calf tenderness Neurologic: normal inspection, alert, oriented x3, normal gait Psychiatric: mood/affect normal Skin: other - small abscess to right forearm Procedures Incision and Drainage Incision and Drainage : Blade Size: 11 I & D Procedure: betadine prep, sterile drapes applied Wound Location: upper extremity Wound's Depth, Shape: superficial Wound Length (cm): 0 Wound Explored: clean Anesthesia: 1% Lidocaine Volume Anesthetic (ccs): 2 Patient Tolerated: Well Complications: None Progress Small amount of purulent material. Medical Decision Making Diagnostic Impression: Primary Impression: Skin abscess ER Course Patient presented for skin rash. Differential diagnosis included was not limited to abscess, cellulitis, folliculitis, necrotizing fasciitis. The patient was noted to have what appears to be skin abscess. The small amount purulent material was drained on incision and drainage. The bacitracin was applied. Patient knows no signs of systemic illness. Last Vital Signs Date Time Temp Pulse Resp B/P (MAP) Pulse Ox O2 Delivery O2 Flow Rate FiO2 04/07/18 20:44 98.8 16 153/79 98 Room Air 98.8 04/07/18 20:34 68 Status: improved Disposition: HOME, SELF-CARE Condition: Stable Scripts Bacitracin Zinc* (BACITRACIN ZINC*) 1 Each Packet 1 APPLIC TOPIC THREE TIMES A DAY, #30 PACKET Prov: Michael Watt MD 04/07/18 Patient Instructions: Abscess Michael Watt MD Apr 07, 2018 21:19
== END 2018-04-07 21:17 | disposition home or self-care (01) ==
LOC: EMR 20:50
DX: L02.413 Cutaneous abscess of right upper limb (principal)
CPT/HCPCS: 10060; 99283

== ENCOUNTER 2018-07-14 23:34 | Emergency (ER) | payer MEDICAID ==
[~2018-07-14] VITALS: Ht 185.4 cm; Wt 176.9 kg
[~2018-07-14 23:34] MED LIST changes: +BACITRACIN ZIN1 EACH TOPIC
[2018-07-14 23:47] VITALS: BP 158/67
--- NOTE | 2018-07-14 23:47 | NUR ---
ED Nurse Note: Pt arrived ED from Home, c/o coughing and right eye pain today. 11/17. Pt is A/O X4, Vital signs stable at this time. waitng for orders.
[2018-07-15] MEDS ORDERED: TRAMADOL HCL50 MG ORAL (00:34)
--- NOTE | 2018-07-15 00:35 | Emergency Room Report ---
History of Present Illness General Chief Complaint: Upper Respiratory Illness Source: Patient Present Illness HPI Is a 28-year-old male with no past medical history. He presents with chief complaint of cough and congestion. Also with headache. Onset for last 5 days. Mstx-tvs-ukbouow medication not helping. No fever chills but no nausea no vomiting. Denies any other complaint. Pain is 8 out of 10. Allergies: Coded Allergies: No Known Allergies (Unverified , 08/25/15) Patient History Past Medical History: none, see triage record, old chart reviewed Past Surgical History: none Pertinent Family History: none Social History: Denies: smoking Immunizations: other Reviewed Nursing Documentation: PMH: Agreed; PSxH: Agreed Nursing Documentation-PMH Past Medical History: No History, Except For Hx Hypertension: No Hx Asthma: Yes Review of Systems Eye: Denies: eye pain, blurred vision ENT: Reports: nose congestion; Denies: ear pain, throat swelling Respiratory: Reports: cough; Denies: shortness of breath Cardiovascular: Denies: chest pain, palpitations Gastrointestinal: Denies: abdominal pain, diarrhea, nausea, vomiting Musculoskeletal: Denies: back pain, joint pain Skin: Denies: rash Neurological: Denies: headache, numbness Endocrine: Denies: increased thirst, increased urine Hematologic/Lymphatic: Denies: easy bruising All Other Systems: negative except mentioned in HPI Physical Exam Vital Signs Date Time Temp Pulse Resp B/P (MAP) Pulse Ox O2 Delivery O2 Flow Rate FiO2 07/14/18 23:40 98.1 78 16 162/98 97 Room Air vitals with high blood pressure Sp02 EP Interpretation: reviewed, normal General Appearance: well appearing, no apparent distress, alert Head: normocephalic, atraumatic Eyes: bilateral eye PERRL, bilateral eye EOMI ENT: hearing grossly normal, normal pharynx Neck: full range of motion, supple, no meningismus Respiratory: chest non-tender, lungs clear, normal breath sounds Cardiovascular #1: regular rate, rhythm, no murmur Gastrointestinal: normal bowel sounds, non tender, no mass, no organomegaly, no bruit, non-distended Musculoskeletal: back normal, gait/station normal, normal range of motion Psychiatric: mood/affect normal Skin: warm/dry Medical Decision Making Diagnostic Impression: Primary Impression: Upper respiratory infection Qualified Codes: J06.9 - Acute upper respiratory infection, unspecified ER Course Patient with viral illness. No focal deficit. Blood pressure running little high here. He said his blood pressure has been normal with recent visit to his primary care doctor. No evidence of any meningitis, sepsis, pneumonia to name a few. Last Vital Signs Date Time Temp Pulse Resp B/P (MAP) Pulse Ox O2 Delivery O2 Flow Rate FiO2 07/14/18 23:40 98.1 78 16 162/98 97 Room Air Status: unchanged Disposition: HOME, SELF-CARE Condition: Stable Scripts Tramadol Hcl* (ULTRAM*) 50 Mg Tablet 50 MG ORAL Q6H PRN for For Pain, #20 TAB 0 Refills Prov: Roberto Schaffer MD 07/15/18 Patient Instructions: Upper Respiratory Infection, Adult Additional Instructions: Follow-up with your Dr. 7 days. Return if symptom worsen. Roberto Schaffer MD Jul 15, 2018 00:35
[2018-07-15 00:45] VITALS: BP 152/71
--- NOTE | 2018-07-15 00:45 | NUR ---
ED Nurse Note: Pt has seen by Dr. Schaffer, all orders carried out. Pt is ready for discharge. D/c instruction and prescription given to Pt and verbalized understanding. ID band removed. Pt d/c from ED with steady gait.
== END 2018-07-15 00:45 | disposition home or self-care (01) ==
LOC: EMR 23:59
DX: J06.9 Acute upper respiratory infection, unspecified (principal); R51 Headache
CPT/HCPCS: 99282

== ENCOUNTER 2019-02-15 21:26 | Emergency (ER) | payer MEDICAID ==
[~2019-02-15] VITALS: Ht 185.4 cm; Wt 172.4 kg
[2019-02-15 21:35] VITALS: BP 155/100
--- NOTE | 2019-02-15 21:37 | NUR ---
ED Nurse Note: pt walked in to ED C/o cough for last 2.5 week with itchy throat. Also c/o a discoloration to right lower leg which is tender to touch. pt is alert x4.
[2019-02-15] MEDS ORDERED: IBUPROFEN600 MG ORAL (22:32)
[2019-02-15] MEDS ORDERED: GUAIFENESIN DM118 M1 ORAL (22:32)
[2019-02-15 22:37] VITALS: BP 150/98
--- NOTE | 2019-02-15 22:37 | NUR ---
ER DISCHARGE NOTE: Patient is cleared to be discharged per ERMD, pt is aox4, on room air, with stable vital signs. pt was given dc and prescription instructions, pt was able to verbalize understanding, pt id band removed without complications. pt is able to ambulate with steady gait. pt took all belongings.
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
== END 2019-02-15 22:37 | disposition home or self-care (01) ==
LOC: EMR 22:03
DX: T14.8XXA Other injury of unspecified body region, initial encounter (principal); X58.XXXA Exposure to other specified factors, initial encounter; Y92.9 Unspecified place or not applicable; J06.9 Acute upper respiratory infection, unspecified
CPT/HCPCS: 99282

== ENCOUNTER 2019-07-11 20:10 | Emergency (ER) | payer MEDICAID ==
[~2019-07-11] VITALS: Ht 185.4 cm; Wt 174.6 kg
[~2019-07-11 20:10] MED LIST changes: +GUAIFENESIN DM118 M1 ORAL
[2019-07-11] MEDS ORDERED: IBUPROFEN600 MG ORAL (20:39)
--- NOTE | 2019-07-11 20:41 | NUR ---
ED Nurse Note: pt walked in c/o right leg pain, pt states he was jumping at the gym and heard something pop, pt report 10/10 pain, noted pt limping, no sx deformity, cms intact, will cont monitor.
--- NOTE | 2019-07-11 20:44 | Emergency Room Report ---
History of Present Illness General Chief Complaint: Lower Extremity Injury Source: Patient Present Illness HPI Disclaimer: Please note that this report is being documented using [employer] technology. This can lead to erroneous entry secondary to incorrect interpretation by the dictating instrument. HPI: 29-year-old male presents for evaluation of right thigh pain. He was doing box jumps at the gym when he felt a pop in his right lateral aspect of the thigh while jumping. Denies fall or injury. Noted pain over the lateral aspects that was initially radiating down to the right knee but now has localized to the mid thigh. Able to ambulate safely. Denies any pain in the patella, knee, hip, ankle. Notes a cramping feeling in the mid thigh. Denies any changes in sensation. PMH: Asthma PSH: Growth plate surgery as a kid Allergies: Denies Social Hx: Denies Allergies: Coded Allergies: No Known Allergies (Unverified , 08/25/15) Nursing Documentation-PMH Hx Hypertension: No Hx Asthma: Yes Review of Systems All Other Systems: negative except mentioned in HPI Physical Exam Vital Signs Date Time Temp Pulse Resp B/P (MAP) Pulse Ox O2 Delivery O2 Flow Rate FiO2 07/11/19 20:24 98.4 76 16 133/86 (102) 96 Room Air General: Awake and alert, no acute distress HEENT: NC/AT. EOMI. Resp: Normal work of breathing Skin: Intact. No abrasions, laceration or rash over the exposed skin MSK: Normal tone and bulk. Moving all extremities. No obvious deformity. Tenderness palpation over the lateral and anterior lateral aspect of the right thigh without palpable deformity. No tenderness over the patella. No tenderness around the knee joint. No laxity on varus or valgus testing. Patient is able to flex and extend the leg without difficulty. Able to bear weight and ambulate safely. No tenderness or instability in the hip. Strength is 5/5 at the hip, knee. Neuro: Awake and alert. Mentating appropriately. Sensation intact over the dermatomes of lower extremities bilaterally. Medical Decision Making Diagnostic Impression: Primary Impression: Injury of lower extremity ER Course Is a 29-year-old male presenting for evaluation of right thigh pain after hearing a pop while doing box jumps at the gym. May have torn, partially torn or strained 1 of his quadricep muscles. Patient does not appear to have sustained any bony injury. Able to ambulate safely and has full strength and sensation in the lower extremities. No joint instability noted. Do not believe he requires emergent imaging at this time but may benefit from an outpatient MRI if symptoms fail to improve with symptomatic treatment. He will be given crutches and NSAIDs. He states he will call his PMD in the morning for referral to an orthopedic surgeon in his network. Discussed reasons to return to the emergency department. Understands and agrees with this treatment plan. Last Vital Signs Date Time Temp Pulse Resp B/P (MAP) Pulse Ox O2 Delivery O2 Flow Rate FiO2 07/11/19 20:24 98.4 76 16 133/86 (102) 96 Room Air Disposition: HOME, SELF-CARE Condition: Stable Scripts Ibuprofen* (MOTRIN*) 600 Mg Tablet 600 MG ORAL Q8H PRN for For Pain, #30 TAB 0 Refills Prov: Gee Leigh MD 07/11/19 [facility] Open 24 hour /7 days a week by Appointment Only [address] [facility] [address] [facility] [address] Patient Instructions: Muscle Tear Additional Instructions: Please see your primary care doctor soon as possible for referral to orthopedic surgery. You may require outpatient imaging to evaluate for strain versus tear of the quadricep muscle. Use the crutches to get around safely. Do not lift any weights while using the crutches as it can be dangerous. Use Tylenol Motrin for pain and swelling. Please follow-up with your primary care doctor in the next 1 to 3 days to discuss this emergency department visit and for reevaluation. If you have any new or worsening symptoms please return to the emergency department for reevaluation. Please note that this report is being documented using [employer] technology. This can lead to erroneous entry secondary to incorrect interpretation by the dictating instrument. Gee Leigh MD Jul 11, 2019 20:44
[2019-07-11 20:45] VITALS: BP 130/86
--- NOTE | 2019-07-11 20:45 | NUR ---
ED Nurse Note: pt cleared to be d/c per ermd, pt discharge and aftercare instructions provided with prescriptions sent to pharmacy via electronically, pt education done via discussion and handout, pt advised to follow up with pcp or return to ED if changes in condition, vss, ambulatory w/ steady gait, left w/ all belongings, pt was educated regarding crutches, pt successfully demonstrated back.
== END 2019-07-11 20:45 | disposition home or self-care (01) ==
LOC: EMR 20:34
DX: M79.651 Pain in right thigh (principal)
CPT/HCPCS: 99282

== ENCOUNTER 2020-04-06 19:00 | Emergency (ER) | payer MEDICAID ==
[~2020-04-06] VITALS: Ht 190.5 cm; Wt 122.5 kg
[2020-04-06] MEDS ORDERED: Cephalexin 500mg cap ORAL ONE (19:30)
[2020-04-06] MEDS ORDERED: Methocarbamol 750mg tab ORAL ONE (19:30)
[2020-04-06] MEDS ORDERED: Ketorolac 30mg Inj IM ONE (19:30)
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
--- NOTE | 2020-04-06 20:04 | NUR ---
ED Nurse Note: Patient returned from radiology accompanied by Jacobo the radiology techinician.
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
[2020-04-06 20:11] VITALS: BP 140/92
[2020-04-06] MEDS ORDERED: LIDODERM700 M1 TOPIC (20:19)
[2020-04-06] MEDS ORDERED: CEPHALEXIN500 MG ORAL (20:19)
[2020-04-06] MEDS ORDERED: IBU800 MG PO (20:19)
[2020-04-06] MEDS ORDERED: ROBAXIN-750750 MG PO (20:19)
--- NOTE | 2020-04-06 20:22 | NUR ---
ER DISCHARGE NOTE: Patient is cleared to be discharged per ERMD. Patient verbalized understanding of discharge instructions, ID band removed. Patient is A&OX4, ambulatory with steady gait. Patient currently having bacitracin placed on site and provided with additional gauze upon request. Patient departed with all belongings to home via his personal vehicle.
[2020-04-06] MEDS ORDERED: Bacitracin Oint UD TOPIC ONE ×2 (20:27→20:30)
[2020-04-06 20:28] VITALS: BP 140/92
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
== END 2020-04-06 20:30 | disposition home or self-care (01) ==
LOC: EMR 19:35
DX: L03.116 Cellulitis of left lower limb (principal); S20.219A Contusion of unspecified front wall of thorax, initial encounter; V03.90XA Pedestrian on foot injured in collision with car, pick-up truck or van, unspecified whether traffic or nontraffic accident, initial encounter; Y92.9 Unspecified place or not applicable
CPT/HCPCS: 71250; 73590; 96372; J1885; Z7502; 99284

== ENCOUNTER 2020-04-12 23:48 | Emergency (ER) | payer MEDICAID ==
[~2020-04-12] VITALS: Ht 185.4 cm; Wt 167.8 kg
[~2020-04-12 23:48] MED LIST changes: +IBU800 MG PO; +LIDODERM700 M1 TOPIC
[2020-04-13 00:05] VITALS: BP 144/75
[2020-04-13] MEDS ORDERED: NORCO 5-325 TA1 EAC1 ORAL (00:34)
[2020-04-13 00:35] VITALS: BP 147/80
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
== END 2020-04-13 00:35 | disposition home or self-care (01) ==
LOC: EMR 23:59
DX: S20.212D Contusion of left front wall of thorax, subsequent encounter (principal); V49.9XXA Car occupant (driver) (passenger) injured in unspecified traffic accident, initial encounter; Y92.9 Unspecified place or not applicable
CPT/HCPCS: 99281